=== PATIENT | male | born 1955 | race Caucasian/White ===

== ENCOUNTER → 2017-02-25 | Outpatient (CLI) | payer BC, OTHER ==
--- NOTE | 2017-02-25 11:23 | RADIOLOGY REPORT (SQ) ---
EXAM DESCRIPTION: FOOT RIGHT COMPLETE; FOOT LEFT COMPLETE COMPLETED DATE/TIME: 02/25/2017 11:09 am REASON FOR STUDY: NON-PRS CHRONIC ULCER OTH PRT RIGHT FOOT W FAT LAYER EXPOSED; NON-PRS CHRONIC ULCE R OTH PRT LEFT FOOT W FAT LAYER EXPOSED COMPARISON: 2015. NUMBER OF VIEWS: Three views left foot. Three views right foot. LIMITATIONS: None. FINDINGS: Left foot: Osteopenic. Mild soft tissue irregularity in the area of interest along the g reat toe medially and distally. Roughly at the level of the IP joint. No underlying radiopaque fore ign body. Joint intact allowing for mild degenerative narrowing. No bone resorption here or elsewhe re. No acute fracture. Mild vascular calcification. Three views right foot: Osteopenic. Mild soft tissue irregularity along the medial aspect of the gr eat toe metatarsal head. No underlying radiopaque foreign body or bone resorption. No fracture evid ent. Regional vascular calcification. OTHER: No other significant finding. IMPRESSION: 1. Distal left great toe ulcer without underlying radiopaque foreign body or bone resor ption to suggest osteomyelitis. 2. Right great toe ulcer without underlying radiopaque foreign body or bone resorption to suggest osteomyelitis. TECHNICAL DOCUMENTATION: JOB ID: [id number]
== END ==
LOC: OD 10:42
PROVIDERS: ATTEND Nurse Practitioner Family
DX: L97.512 Non-pressure chronic ulcer of other part of right foot with fat layer exposed (principal); L97.522 Non-pressure chronic ulcer of other part of left foot with fat layer exposed

== ENCOUNTER 2017-03-02 12:55 | Emergency (ER) | payer BC, OTHER ==
--- NOTE | 2017-03-02 14:03 | ER Document Report ---
ED General - General Chief Complaint: Skin Problem Stated Complaint: THORN NEEDLES STUCK IN BACK Time Seen by Provider: 03/02/17 13:22 Information source: Patient TRAVEL OUTSIDE OF THE [place] IN LAST 30 DAYS: No - HPI Onset: Yesterday - 61-year-old male presented to the emergency room today stating that he had gotten too close to a cactus and had some needles in his left upper posterior arm and subaxillary area. Past Medical History - General Information source: Patient - Social History Smoking Status: Current Every Day Smoker Cigarette use (# per day): No Chew tobacco use (# tins/day): No Smoking Education Provided: No Family History: None Patient has suicidal ideation: No Patient has homicidal ideation: No Renal/ Medical History: Denies: Hx Peritoneal Dialysis Review of Systems - Review of Systems Constitutional: No symptoms reported EENT: No symptoms reported Cardiovascular: No symptoms reported Respiratory: No symptoms reported Gastrointestinal: No symptoms reported Genitourinary: No symptoms reported Male Genitourinary: No symptoms reported Musculoskeletal: No symptoms reported Skin: No symptoms reported Hematologic/Lymphatic: No symptoms reported Neurological/Psychological: No symptoms reported Physical Exam - Vital signs Vitals: Temp Pulse Resp BP Pulse Ox 98.7 F 88 18 151/80 H 95 03/02/17 12:59 03/02/17 12:59 03/02/17 12:59 03/02/17 12:59 03/02/17 12:59 Interpretation: Normal - General General appearance: Appears well, Alert - HEENT Head: Normocephalic, Atraumatic Eyes: Normal Pupils: PERRL - Respiratory Respiratory status: No respiratory distress Chest status: Nontender Breath sounds: Normal Chest palpation: Normal - Cardiovascular Rhythm: Regular Heart sounds: Normal auscultation Murmur: No - Abdominal Inspection: Normal Distension: No distension Bowel sounds: Normal Tenderness: Nontender Organomegaly: No organomegaly - Back Back: Normal, Nontender - Extremities General upper extremity: Normal inspection, Nontender, Normal color, Normal ROM , Normal temperature General lower extremity: Normal inspection, Nontender, Normal color, Normal ROM , Normal temperature, Normal weight bearing. No: Simone's sign - Neurological Neuro grossly intact: Yes Cognition: Normal Orientation: AAOx4 [place] Coma Scale Eye Opening: Spontaneous Radha Coma Scale Verbal: Oriented Radha Coma Scale Motor: Obeys Commands [place] Coma Scale Total: 15 Speech: Normal Motor strength normal: LUE, RUE, LLE, RLE Sensory: Normal - Psychological Associated symptoms: Normal affect, Normal mood - Skin Skin Temperature: Warm Skin Moisture: Dry Skin Color: Normal Course - Re-evaluation Re-evalutation: 03/02/17 13:59 2 1-year-old male verifying cactus needles to posterior aspect of right upper arm and sub-axilla area on the same side. Nurses advised to use a 3 inch tape placed over the area close to the skin pulled the tape off thus removing the cactus needles patient was advised to try the same technique at home. - Vital Signs Vital signs: Temp Pulse Resp BP Pulse Ox 98.7 F 88 18 151/80 H 95 03/02/17 12:59 03/02/17 12:59 03/02/17 12:59 03/02/17 12:59 03/02/17 12:59 Discharge - Discharge Clinical Impression: Foreign body (FB) in soft tissue Condition: Good Disposition: HOME, SELF-CARE Additional Instructions: Foreign Body You may have had a particle of dust or other foreign body in your eye Today, either your foreign body was found and removed or no foreign body was found. Your eye may be irritated until complete healing occurs. The usual treatment is to place antibiotics in the eye. In addition, pain medication may be necessary. A follow-up visit may be scheduled to assure healing. Do not drive or operate machinery until you have the full use of both your eyes. Healing of the area takes one to three days. If eye pain becomes severe, or if there is purulent drainage, eye swelling , or decreasing vision, call the doctor or return at once for re-evaluation. Prescriptions: Tramadol HCl [Ultram 50 mg Tablet] 50 mg PO Q4HP PRN #60 tab PRN Reason: Sulfamethoxazole/Trimethoprim [Bactrim Ds Tablet] 1 each PO BID #20 tablet
[2017-03-02 14:33] VITALS: BP 140/88
== END 2017-03-02 14:15 | disposition home or self-care (01) ==
LOC: ER 12:55
DX: S21.241A Puncture wound with foreign body of right back wall of thorax without penetration into thoracic cavity, initial encounter (principal); S41.141A Puncture wound with foreign body of right upper arm, initial encounter; W45.8XXA Other foreign body or object entering through skin, initial encounter; F17.200 Nicotine dependence, unspecified, uncomplicated
CPT/HCPCS: 99283

== ENCOUNTER 2017-05-05 20:54 | Emergency (ER) | payer BC, OTHER ==
--- NOTE | 2017-05-05 21:31 | ER Document Report ---
ED Fall - General Mode of Arrival: Medic Information source: Patient TRAVEL OUTSIDE OF THE [place] IN LAST 30 DAYS: No - HPI Occurred: Just prior to arrival - Refer to HPI Notes - General Chief Complaint: Laceration Stated Complaint: LACERATION TO HEAD Time Seen by Provider: 05/05/17 21:09 Notes: Patient is a 58-year-old male presented to the emergency department after a fall. Patient has a laceration to the upper back of his head. Patient states that he went outside to take the trash out and while he was pushing the trash can he had forgotten to put the lid on the can and it got stuck in the wheel and caused the trash can to fall; the patient fell with the trash can and complains of pain to his head along with the laceration. Patient states that he is on Plavix and he stopped taking it for a while but a few days ago he started taking it again. Patient also has a history of diabetes mellitus and hypertension. Patient denies any loss of consciousness, neck pain, back pain, chest pain, numbness or tingling in his extremities. Patient was able to get up after a minute with no assistance and walk to his back patio where his states this has been called 9 1. Patient was brought in via EMS. Patient's primary care physician is Dr. Terrazas. (LULU RASMUSSEN) - Related data Allergies/Adverse Reactions: No Known Allergies Allergy (Unverified 03/02/17 14:22) Past Medical History - General Information source: Patient - Social History Smoking Status: Unknown if Ever Smoked Drug Abuse: None Family History: None Patient has suicidal ideation: No Patient has homicidal ideation: No - Past Medical History Cardiac Medical History: Reports: Hx Hypercholesterolemia, Hx Hypertension Endocrine Medical History: Reports: Hx Diabetes Mellitus Type 2 Past Surgical History: Reports: Hx Nose Surgery - sinus, Hx Tonsillectomy - Immunizations Hx Diphtheria, Pertussis, Tetanus Vaccination: Yes Review of Systems - Review of Systems Constitutional: No symptoms reported EENT: No symptoms reported Cardiovascular: No symptoms reported Respiratory: No symptoms reported Gastrointestinal: No symptoms reported Genitourinary: No symptoms reported Male Genitourinary: No symptoms reported Musculoskeletal: No symptoms reported Skin: See HPI Hematologic/Lymphatic: No symptoms reported Neurological/Psychological: See HPI, Headaches -: Yes All other systems reviewed and negative Physical Exam - Notes Notes: GENERAL: Alert, interacts well. Blood on clothes, pillow, hands, and head. Moderate distress. HEAD: Normocephalic, atraumatic. EYES: Appear normal. Pupils equal, round, and reactive to light. ENT: Moist mucus membranes, tongue midline. NECK: Full range of motion. Supple. Trachea midline. LUNGS: Clear to auscultation bilaterally, no wheezes, rales, or rhonchi. No respiratory distress. HEART: Regular rate and rhythm. No murmurs, gallops, or rubs. ABDOMEN: Soft, non-tender. Non-distended. Normal bowel sounds. EXTREMITIES: Moves all 4 extremities spontaneously. Normal strength. No edema. NEUROLOGICAL: Alert and oriented x3. Normal speech. No focal neurological deficits. GSC 15. PSYCH: Normal affect, normal mood. SKIN: Warm, dry, normal turgor. 8 cm V-shaped laceration to the left parietal scalp area. Bleeding is controlled. (LULU RASMUSSEN) Course - Re-evaluation Re-evalutation: 05/05/17 22:19 Patient presents emergency department with a head laceration. He was taking out his trash and went to push the trash can without the top being on he said the wheels gave way and he and the trash can fell backwards onto his head. He got up after a few seconds without loss of consciousness that walked into his house where he was bleeding from his head. His called the ambulance. On arrival he is awake alert with a GCS of 15 stages started back on his Plavix a few days ago. Bleeding is controlled at this point he has a GCS of 15 no complaints of facial neck chest abdomen back or extremity trauma. CT of the head is negative for acute pathology. He has an 8 cm V-shaped laceration to the left parietal scalp area. This was anesthetized with lidocaine with epinephrine and 12 interrupted haley were used to approximate the wound which was down to the galea. Bleeding is well controlled at this point. He is going to be discharged follow primary care physician 2 days recheck and reevaluation in 7-10 days for staple removal and discussed reasons for ED return sooner (JESSICA DELGADO) Procedures - Laceration/Wound Repair left parietal scalp Time completed: 22:15 Wound length (cm): 8 Wound's Depth, Shape: Other - v-shaped Laceration pre-procedure: Sterile PPE donned Anesthetic type: 1% Lidocaine w/epi Wound explored: Clean Wound Repaired With: Haley - 12 Number of Sutures: 12 Post-procedure wound care: Sterile dressing applied Post-procedure NV exam normal: Yes Complications: No - Laceration/Wound Repair left parietal scalp Notes: 05/05/17 22:15 8 cm v-shaped laceration over the left parietal scalp was anesthetized with lidocaine with epinephrine and 12 interrupted haley were used to approximate the wound which was down to the galea. Bleeding is well controlled at this point. Sterile dressing was applied. (LULU RASMUSSEN) Discharge - Discharge Clinical Impression: 8.0 cm head laceration with repair, Mechanical fall Condition: Stable Disposition: HOME, SELF-CARE Instructions: Laceration Care ([facility]) Additional Instructions: Laceration Care Your laceration has been sutured to keep the skin edges aligned during healing. The time of suture removal depends on the nature and location of your cut. Please follow the care instructions the doctor has outlined for you and return for further care, according to the schedule you've been given. Keep the wound and dressing clean. Unless you were told otherwise, you may shower daily, blotting the wound dry with a clean, unused towel. At other times, If the dressing gets wet or blood soaked, remove it and blot the wound dry, then reapply a new dressing. Unless you were instructed otherwise, dressings should be changed at least daily. If any signs of infection occur (swelling, redness, increasing tenderness, red streaks, tender lumps in the armpit or groin above the laceration, or fever) , see the doctor immediately. Head Injury Your child's examination shows no evidence of brain injury. The child can therefore be safely observed at home. Give clear liquids only for the first eight hours. Acetaminophen or ibuprofen can safely be given for pain. Follow the directions on the bottle. Do not give any medication that may alter her/his level of alertness. Limit activity for the first 24 hours -- bed rest is advisable at first. Several times during the first 24 hours, check the patient to see if the pupils are equal in size to each other, that the patient is easily arousable, and responds normally. Contact your doctor or go to the hospital if any of the following things occur: Persistent or projectile vomiting, a seizure, confusion , unequal pupil size, difficulty in arousing the patient, worsening or continued headache, or failure to improve as expected. Follow-up with your primary care physician in 2 days for recheck and reevaluation and in 7-10 days for removal of haley. Return for increasing worsening or new symptoms Referrals: BILLY HODGES MD [Primary Care Provider] - Follow up as needed Scribe Attestation: 05/05/17 22:22 I personally performed the services described in the documentation reviewed the documentation recorded by my scribe in my presence and it accurately and completely records my words and actions (JESSICA DELGADO) Scribe Documentation - Scribe Written by Tammy:: Tammy Adkins, 05/05/2017 22:28 acting as scribe for :: Isidro
[2017-05-05] MEDS ORDERED: LIDOCAINE 0.5%/EPINEPHRINE INJ 50 ML VIAL INJ ONE (21:47)
--- NOTE | 2017-05-05 22:06 | RADIOLOGY REPORT (SQ) ---
EXAM DESCRIPTION: CT HEAD WITHOUT COMPLETED DATE/TIME: 05/05/2017 9:37 pm REASON FOR STUDY: fall on blood thinners COMPARISON: None. TECHNIQUE: Axial images acquired through the brain without intravenous contrast. Images reviewed wi th bone, brain and subdural windows. Images stored on PACS. All CT scanners at this facility use dose modulation, iterative reconstruction, and/or weight based d osing when appropriate to reduce radiation dose to as low as reasonably achievable (ALARA). [facility]: Dose Right [facility]: CareDose [facility]: Dose Right [facility]: Teradose 4D [facility]: Smart [place] RADIATION DOSE: Up-to-date CT equipment and radiation dose reduction techniques were employed. CTDIv ol: 49.0 mGy. DLP: 783 mGy-cm. mGy. LIMITATIONS: None. FINDINGS: VENTRICLES: Normal size and contour. CEREBRUM: No masses. No hemorrhage. No midline shift. Normal spencer/white matter differentiation. N o evidence for acute infarction. CEREBELLUM: No masses. No hemorrhage. No alteration of density. No evidence for acute infarction. EXTRAAXIAL SPACES: No fluid collections. No masses. ORBITS AND GLOBE: No intra- or extraconal masses. Normal contour of globe without masses. CALVARIUM: No fracture. PARANASAL SINUSES: No fluid or mucosal thickening. SOFT TISSUES: No mass or hematoma. OTHER: No other significant finding. IMPRESSION: No significant intracranial abnormalities were identified. Findings as noted above TECHNICAL DOCUMENTATION: JOB ID: [id number] Quality ID # [id number]: Final reports with documentation of one or more dose reduction techniques (e.g., Au tomated exposure control, adjustment of the mA and/or kV according to patient size, use of iterative reconstruction technique) 2010 [employer]- All Rights Reserved
== END 2017-05-05 22:47 | disposition home or self-care (01) ==
LOC: ER 20:54
PROC: 0HQ0XZZ Repair Scalp Skin, External Approach (ICD-10-PCS; principal; 2017-05-05)
DX: S01.91XA Laceration without foreign body of unspecified part of head, initial encounter (principal); Z79.899 Other long term (current) drug therapy; W19.XXXA Unspecified fall, initial encounter
CPT/HCPCS: 99283; 70450; 12004; J3490